=== PATIENT | female | born 1960 | race Caucasian/White ===

== ENCOUNTER 2017-06-17 20:38 | Emergency (ER) | payer OTHER ==
[2017-06-17 20:47] VITALS: BP 151/91; PULSE 76; RESP 16; TEMP 98.4; O2SAT 100
[2017-06-17] MEDS ORDERED: Iohexol 240 (50 ml) PO ONE (21:18)
--- NOTE | 2017-06-17 21:25 | ED PDOC ---
HPI: Abdomen Time Seen by Provider: 06/17/17 20:49 Chief Complaint (Nursing): Chest Pain Chief Complaint (Provider): Abdominal Pain History Per: Patient History/Exam Limitations: no limitations Onset/Duration Of Symptoms: Intermittent Episodes (2 months ) Current Symptoms Are (Timing): Still Present Location Of Pain/Discomfort: RUQ, Epigastric Additional Complaint(s): Caitlyn Todd is a 56 y/o female, with a past medical history of Borderline Hypertension, presenting to the ER on 06/17/2017 with intermittent episodes of epigastric and RUQ pain that has been ongoing for two months. Patient reports for the last week, her pain has been constant. She was evaluated at an Urgent Care center that prescribed her Sucralfate for her pain, which has not resolved. Upon arrival, the patient notes she was seen by her PMD in the past and had CT imaging performed on her abdomen. However, patient is unsure if the results said she had her gallbladder removed when she had a gastric bypass performed in the past. Patient further reports her pain worsened specifically today, prompting her to seek medical evaluation. She states she has been experiencing associated constipation, nausea, chest tightness, and shortness of breath, but denies any vomiting, diarrhea, or fever. Patient is also taking Metformin at home for her Hypertension. PMD- Dr. Snyder Past Medical History Reviewed: Historical Data, Nursing Documentation, Vital Signs Vital Signs: Last Vital Signs Temp 98.4 F 06/17/17 20:46 Pulse 76 06/17/17 20:46 Resp 16 06/17/17 20:46 BP 151/91 H 06/17/17 20:46 Pulse Ox 100 06/18/17 00:57 - Medical History PMH: Asthma, Diabetes (pre-diabetes), HTN - Surgical History Surgical History: Other surgeries: gastric bypass - Family History Family History: States: Unknown Family Hx - Social History Current smoker - smoking cessation education provided: No Alcohol: None Drugs: Denies - Home Medications Home Medications: Ambulatory Orders Medication Instructions Recorded Cyclobenzaprine [Cyclobenzaprine 10 mg PO Q8 PRN #9 tab 08/05/16 HCl] oxyCODONE/Acetaminophen [Percocet 1 tab PO Q4 PRN #14 tab 08/05/16 5/325 mg Tab] Famotidine [Pepcid] 20 mg PO DAILY #14 tab 06/18/17 Omeprazole 20 mg PO DAILY #30 capsule. 06/18/17 - Allergies Allergies/Adverse Reactions: Allergies Allergy/AdvReac Type Severity Reaction Status Date / Time aspirin Allergy ANAPHYLAXIS Verified 06/17/17 20:46 Penicillins Allergy RASH Verified 06/17/17 20:46 Review of Systems ROS Statement: Except As Marked, All Systems Reviewed And Found Negative Constitutional: Negative for: Fever Cardiovascular: Positive for: Chest Pain Gastrointestinal: Positive for: Nausea, Abdominal Pain, Constipation. Negative for: Vomiting, Diarrhea Physical Exam - Reviewed Nursing Documentation Reviewed: Yes Vital Signs Reviewed: Yes - Physical Exam Appears: Positive for: Non-toxic, No Acute Distress. Negative for: Uncomfortable Head Exam: Positive for: ATRAUMATIC, NORMOCEPHALIC Skin: Positive for: Normal Color. Negative for: Rash Eye Exam: Positive for: Normal appearance ENT: Positive for: Normal ENT Inspection. Negative for: Pharyngeal Erythema, Tonsillar Exudate, Tonsillar Swelling Neck: Positive for: Normal, Painless ROM, Supple Cardiovascular/Chest: Positive for: Regular Rate, Rhythm. Negative for: Murmur Respiratory: Positive for: Normal Breath Sounds. Negative for: Respiratory Distress Gastrointestinal/Abdominal: Positive for: Normal Exam, Tenderness ((+) epigastric and Right upper quadrant ) Extremity: Positive for: Normal ROM. Negative for: Tenderness, Deformity, Swelling Neurologic/Psych: Positive for: Alert, Oriented. Negative for: Motor/Sensory Deficits - Laboratory Results Result Diagrams: 06/17/17 21:40 06/17/17 21:40 - ECG ECG Rhythm: Positive for: Normal QRS, Normal ST Segment, Sinus Rhythm (@ 78 bpm) . Negative for: ST/T Changes O2 Sat by Pulse Oximetry: 100 - Progress Re-evaluation Time: 00:40 Condition: Re-examined, Improved Medical Decision Making Medical Decision Makin:30 Initial Impression- Abdominal pain ; differential diagnosis includes but is not limited to- gastritis, PUD, pancreatitis, Gallbladder disease (also considered since patient most likely had cholecystecomty), CBD stones , SBO Initial Plan- * CT Abd Pelvis PO & IV Contrast * EKG * CMP * Lipase * Urine Dip * CBC w/ differential * Reevaluation 12:33 CT Abdomen and Pelvis With Intravenous Contrast CONTRAST: 95 mL of [id number] administered intravenously. EXAM DATE/TIME: 06/17/2017 9:19 PM COMPARISON: No relevant prior studies available. FINDINGS: Lower thorax: Calcified granuloma in the right lung base. ABDOMEN: Liver: The liver is unremarkable. Gallbladder and bile ducts: There has been a cholecystectomy. There is a mild, expected degree of intrahepatic and common bile duct dilation. Pancreas: The pancreas is unremarkable. Spleen: The spleen is unremarkable. Adrenals: The adrenal glands are unremarkable. Kidneys and ureters: Symmetric renal enhancement without hydronephrosis. Stomach and bowel: Post gastric bypass with wall thickening of the proximal efferent loop and adjacent stranding likely infectious or inflammatory. No evidence of bowel obstruction. Appendix: A normal appendix is identified. PELVIS: Bladder: No focal wall thickening of the urinary bladder. Reproductive: Uterus is unremarkable. No suspicious adnexal lesion seen. ABDOMEN and PELVIS: Intraperitoneal space: No significant peritoneal free fluid. No free peritoneal air. Bones/joints: No acute osseous abnormality. Soft tissues: No soft tissue swelling. Vasculature: Unremarkable. No abdominal aortic aneurysm. Lymph nodes: No enlarged lymph nodes. IMPRESSION: Post gastric bypass with wall thickening of the proximal efferent loop and adjacent stranding likely infectious or inflammatory. No evidence of bowel obstruction. -- Documented by Armaan Macdonald, acting as a scribe for Sis Vazquez MD. All medical record entries made by the Scribe were at my direction and personally dictated by me. I have reviewed the chart and agree that the record accurately reflects my personal performance of the history, physical exam, medical decision making, and the department course for this patient. I have also personally directed, reviewed, and agree with the discharge instructions and disposition. Disposition - Clinical Impression Clinical Impression: Abdominal pain, Gastritis - Patient ED Disposition Is Patient to be Admitted: No Doctor Will See Patient In The: Office Counseled Patient/Family Regarding: Studies Performed, Diagnosis, Need For Followup - Disposition Referrals: Ronnie Jay MD, PhD [Staff Provider] - Disposition: Routine/Home Disposition Time: 00:57 Condition: GOOD Additional Instructions: Take your medications as instructed. Follow up with your PCP in 2-3 days. Prescriptions: Famotidine [Pepcid] 20 mg PO DAILY #14 tab Omeprazole 20 mg PO DAILY #30 capsule. Instructions: Gastritis (ED) Forms: LISNR ([place]occan)
[2017-06-17 21:48] LABS: BASO # 0.1 K/uL (0.0-0.2); BASO % 0.6 % (0.0-2.0); EOS # 0.7 K/uL (0.0-0.7); EOS % 5.5 % (0.0-4.0); HEMOGLOBIN 10.8 g/dL (12.0-16.0); LYMPH # 2.7 K/uL (1.0-4.3); LYMPH % 21.4 % (20.0-40.0); MEAN CELL VOLUME 69.3 fl (81.0-99.0); MEAN CORPUSCULAR HEMOGLOBIN 20.9 pg (27.0-31.0); MEAN CORPUSCULAR HGB CONC 30.1 g/dL (33.0-37.0); MEAN PLATELET VOLUME 9.3 fl (7.2-11.7); MONO # 0.9 K/uL (0.0-0.8); MONO % 6.9 % (0.0-10.0); NEUT # 8.3 K/uL (1.8-7.0); NEUT % 65.6 % (50.0-75.0); RBC 5.18 Mil/uL (3.80-5.20); RED CELL DISTRIBUTION WIDTH 18.1 % (11.5-14.5); WHITE BLOOD COUNT 12.7 K/uL (4.8-10.8)
[2017-06-17 22:13] LABS: ALB/GLOB RATIO 1.2 (1.0-2.1); ALBUMIN 4.1 g/dL (3.5-5.0); ALT/SGPT 34 U/L (9-52); AST/SGOT 25 U/L (14-36); BLOOD UREA NITROGEN 11 mg/dl (7-17); CALCIUM 9.6 mg/dL (8.4-10.2); GFR AFRICAN-AMERICAN > 60; GFR NON-AFRICAN AMERICAN > 60; LIPASE 84 U/L (23-300)
[2017-06-17] MEDS ORDERED: Iohexol 300 100 ML IJ ONE (23:10)
[2017-06-17] MEDS ORDERED: Sodium Chloride 0.9% 50 ML IV ONE (23:10)
--- NOTE | 2017-06-18 08:51 | CT ---
PROCEDURE: CT Abdomen and Pelvis with contrast HISTORY: abdominal pain epigastric hx of armando? COMPARISON: None. TECHNIQUE: Contrast dose: 95 mL Omnipaque 300 Radiation dose: Total exam DLP = 982.57 mGy-cm. This CT exam was performed using one or more of the following dose reduction techniques: Automated exposure control, adjustment of the mA and/or kV according to patient size, and/or use of iterative reconstruction technique. FINDINGS: LOWER THORAX: No infiltrate/effusion. Calcified granuloma noted in right lower lobe. LIVER: Unremarkable. No gross lesion or ductal dilatation. GALLBLADDER AND BILE DUCTS: Status post cholecystectomy. Dilatation of common bile duct up to 13 mm diameter distally, consistent with prior cholecystectomy. This is not accompanied by intrahepatic biliary dilatation is unlikely indicative of obstruction. PANCREAS: Unremarkable. No gross lesion or ductal dilatation. SPLEEN: Unremarkable. ADRENALS: Unremarkable. No mass. KIDNEYS AND URETERS: Unremarkable. No hydronephrosis. No solid mass. VASCULATURE: Unremarkable. No aortic aneurysm. BOWEL: Patient is status post gastric bypass surgery. There is oral contrast seen within the excluded stomach the indicating possible partial dehiscence of the sutures forming the gastric pouch. Likely communication through a dehiscence is best demonstrated on coronal series 601, image 70. There is mural thickening of the gastric pouch. There is circumferential mural thickening of the most proximal jejunum of the efferent limb. This is nonspecific. There is mild streaky increased attenuation of surrounding. These findings are nonspecific. There are no other abnormal bowel loops identified. There is no bowel obstruction. APPENDIX: Normal appendix. PERITONEUM: Unremarkable. No free fluid. No free air. LYMPH NODES: There is no retroperitoneal or pelvic lymphadenopathy. There are numerous shotty subcentimeter lymph nodes within the small bowel mesenteric, consistent with nonspecific mesenteric adenitis. BLADDER: Poorly distended. Grossly normal. REPRODUCTIVE: Normal uterus BONES: No acute fracture. OTHER FINDINGS: None. IMPRESSION: Possible partial dehiscence of suture line gastric pouch from excluded stomach with oral contrast seen in the excluded portion of the stomach. Mural thickening of gastric pouch. Mural thickening of a roughly 7 cm segment of the proximal efferent limb of jejunum, nonspecific. Shotty small bowel mesenteric lymph nodes consistent with nonspecific mesenteric adenitis. Preliminary interpretation of this examination was reported by [facility] at 12:33 a.m. on 06/18/2017. There is discordance of this report with the preliminary interpretation. Possible dehiscence was not discussed in the preliminary report of this examination. This discrepancy was discussed by telephone with Dr. Wagner at 8:48 a.m. on 06/18/2017.
--- NOTE | 2017-06-18 10:13 | CARD ---
APPROVED REPORT EKG Measurement Heart [id number] <Conclusion> Normal sinus rhythm Normal ECG
== END 2017-06-18 01:48 | disposition home or self-care (01) ==
LOC: H.ER 20:38
DX: K29.70 Gastritis, unspecified, without bleeding (principal); R10.13 Epigastric pain; K59.00 Constipation, unspecified; E11.9 Type 2 diabetes mellitus without complications; I10 Essential (primary) hypertension; Z88.0 Allergy status to penicillin; Z98.84 Bariatric surgery status

== ENCOUNTER 2017-06-18 11:44 | Observation (INO) | payer OTHER ==
[2017-06-18 11:50] VITALS: BMI 32.8
[2017-06-18 11:51] VITALS: RESP 18; O2SAT 100
[2017-06-18 13:09] LABS: BASO # 0.1 K/uL (0.0-0.2); BASO % 0.6 % (0.0-2.0); EOS # 0.7 K/uL (0.0-0.7); EOS % 7.8 % (0.0-4.0); HEMOGLOBIN 10.6 g/dL (12.0-16.0); LYMPH # 2.1 K/uL (1.0-4.3); LYMPH % 23.5 % (20.0-40.0); MEAN CORPUSCULAR HEMOGLOBIN 21.2 pg (27.0-31.0); MEAN CORPUSCULAR HGB CONC 30.7 g/dL (33.0-37.0); MEAN PLATELET VOLUME 9.7 fl (7.2-11.7); MONO # 0.7 K/uL (0.0-0.8); MONO % 8.1 % (0.0-10.0); NEUT # 5.3 K/uL (1.8-7.0); RBC 5.01 Mil/uL (3.80-5.20); RED CELL DISTRIBUTION WIDTH 18.3 % (11.5-14.5); WHITE BLOOD COUNT 8.8 K/uL (4.8-10.8)
--- NOTE | 2017-06-18 13:29 | ED PDOC ---
HPI: Abdomen Time Seen by Provider: 06/18/17 12:17 Chief Complaint (Nursing): Abdominal Pain Chief Complaint (Provider): abdominal pain History Per: Patient History/Exam Limitations: no limitations Additional Complaint(s): 56yo F in ED for call back for abnormal CT findings. Pt c/o of 2-3 months of progressive abdominal pain with some nausea and worsening constipation. denies vomiting fever chills body aches. states she tried to contact her surgeon that did the gastric bybass 13years ago but he moved to [place]. "IMPRESSION: Possible partial dehiscence of suture line gastric pouch from excluded stomach with oral contrast seen in the excluded portion of the stomach. Mural thickening of gastric pouch. Mural thickening of a roughly 7 cm segment of the proximal efferent limb of jejunum, nonspecific. Shotty small bowel mesenteric lymph nodes consistent with nonspecific mesenteric adenitis. Preliminary interpretation of this examination was reported by [facility] at 12:33 a.m. on 06/18/2017. There is discordance of this report with the preliminary interpretation. Possible dehiscence was not discussed in the preliminary report of this examination. This discrepancy was discussed by telephone with Dr. Wagner at 8:48 a.m. on 2016." labs: 12.7 WBC. currently in ED without pain no fever no chills no vomiting no dizziness Past Medical History Reviewed: Historical Data, Nursing Documentation, Vital Signs Vital Signs: Last Vital Signs Temp 98 F 06/18/17 17:21 Pulse 70 06/18/17 17:21 Resp 18 06/18/17 17:21 BP 129/68 06/18/17 17:21 Pulse Ox 100 06/18/17 19:41 - Medical History PMH: Asthma, Diabetes (pre-diabetes), HTN - Surgical History Surgical History: - Family History Family History: States: Unknown Family Hx - Home Medications Home Medications: Ambulatory Orders Medication Instructions Recorded Alendronate [Fosamax] 70 mg PO QWK 06/18/17 Famotidine [Pepcid] 20 mg PO DAILY #14 tab 06/18/17 Montelukast [Singulair] 10 mg PO DAILY 06/18/17 Multivit-Min/Iron/Folic/Zcn220 1 tab PO DAILY 06/18/17 [Hair, Skin and Nails Caplet] Omeprazole 20 mg PO DAILY #30 capsule. 06/18/17 Phentermine HCl [Adipex-P] 37.5 mg PO DAILY 06/18/17 Sucralfate [Carafate Tab] 1 gm PO QID 06/18/17 metFORMIN [glucOPHAGE] 500 mg PO DAILY 06/18/17 - Allergies Allergies/Adverse Reactions: Allergies Allergy/AdvReac Type Severity Reaction Status Date / Time aspirin Allergy ANAPHYLAXIS Verified 06/17/17 20:46 Penicillins Allergy RASH Verified 06/17/17 20:46 Review of Systems ROS Statement: Except As Marked, All Systems Reviewed And Found Negative Constitutional: Negative for: Fever, Chills, Weakness Gastrointestinal: Positive for: Nausea, Abdominal Pain. Negative for: Vomiting Physical Exam - Reviewed Nursing Documentation Reviewed: Yes Vital Signs Reviewed: Yes - Physical Exam Appears: Positive for: Well, Non-toxic, No Acute Distress Skin: Positive for: Normal Color, Warm, DRY Eye Exam: Positive for: EOMI, Normal appearance, PERRL ENT: Positive for: Normal ENT Inspection Neck: Positive for: Normal, Painless ROM Cardiovascular/Chest: Positive for: Regular Rate, Rhythm Respiratory: Positive for: CNT, Normal Breath Sounds Gastrointestinal/Abdominal: Positive for: Bowel Sounds, Soft, Tenderness (mild epigastric abd pain). Negative for: Distended, Guarding Back: Positive for: Normal Inspection Extremity: Positive for: Normal ROM Neurologic/Psych: Positive for: Alert, Oriented - Laboratory Results Result Diagrams: 06/18/17 12:55 06/18/17 12:55 - ECG O2 Sat by Pulse Oximetry: 100 - Progress ED Course And Treament: pt to have repeat labs, and surgery consult. MD aditya made aware of case Medical Decision Making Medical Decision Makin :labs now back with dec WBC compared to CBC 06/17/17. PT stable at this time. onstaff surgery-MD Ciarra consulted. MD Fortino made aware. surgeon and residents currently in surgery 1431 PT given morphine /zofran 1454: MD Ciarra consulted MD Fortino-advised pt will need to be seen by a biariatric surgeon adn transfer would be appropriate at this time pt is stable at this time. no fever no abd swelling or distention 1500: [facility] consulted. 16:05 Call placed to [place] to to get update. pending states international affairs vice president in contact with surgeon will call with an update 16:30 Dextrose 1NS given pt stable with normal VS roughly close to 17:00 consulted with MD Kyleigh. Suggests pt should have issue addressed by surgery in [facility]. req. contact of [place] and residents to discuss case. MD Fortino made aware 17:10 MD Rebecca made aware. 17:38 MD Kyleigh states he spoke with surgical residents-Ashley who stated that they will see pt and contact him. 17:46 international affairs vice president contacted again-will come see pt. 18:20 international affairs vice president contacted again. has yet to see pt. 18:32 international affairs vice president contacted. has not seen pt 18:50 residential director notified -is en route to ED pt is still comfortable and with stable vS 19:21 international affairs vice president in ED evaluating pt. 19:41 [facility] is aware of pending disposition of pt. ED OBSERVATION Date of observation admission: 06/18/17 Time of observation admission: 14:00 - Observation admission statement Patient is being placed in observation because:: pending surgical internvetion - Goals of Observation Goals of observation are:: surgical intervention Disposition - Clinical Impression Clinical Impression: Abdominal pain - Patient ED Disposition Is Patient to be Admitted: Transfer of Care - Disposition Disposition Time: 20:07 Condition: STABLE Patient Signed Over To: Chaz Mercado Handoff Comments: pending surgical dispo
[2017-06-18 13:30] LABS: ALB/GLOB RATIO 1.2 (1.0-2.1); ALBUMIN 3.9 g/dL (3.5-5.0); ALT/SGPT 35 U/L (9-52); AST/SGOT 26 U/L (14-36); BLOOD UREA NITROGEN 9 mg/dl (7-17); CALCIUM 9.1 mg/dL (8.4-10.2); GFR AFRICAN-AMERICAN > 60; GFR NON-AFRICAN AMERICAN > 60
[2017-06-18] MEDS ORDERED: Sodium Chloride 0.9% 1,000 ML IV STA (15:01)
[2017-06-18] MEDS ORDERED: Dextrose 5%/0.9% NS 1,000 ML IV SCH (16:15)
[2017-06-18] MEDS ORDERED: Dextrose 5%/0.45% NS 1,000 ML IV SCH (16:30)
[2017-06-18 17:00] LABS: SQUAMOUS EPITHIAL 1 /hpf (0-5); URINE BILIRUBIN NEGATIVE (NEGATIVE); URINE BLOOD NEGATIVE (NEGATIVE); URINE CLARITY SLIGHTY-CLOUDY (Clear); URINE COLOR YELLOW (YELLOW); URINE GLUCOSE (UA) NEG (Normal); URINE LEUKOCYTE ESTERASE NEG Leu/uL (Negative); URINE NITRATE NEGATIVE (NEGATIVE); URINE PROTEIN NEGATIVE (NEGATIVE); URINE UROBILINOGEN 0.2-1.0 mg/dL (0.2-1.0)
[2017-06-18 17:21] VITALS: BP 129/68; PULSE 70; TEMP 98
--- NOTE | 2017-06-18 20:25 | ED PDOC ---
- Laboratory Results Result Diagrams: 06/18/17 12:55 06/18/17 12:55 - ECG O2 Sat by Pulse Oximetry: 100 Pulse Ox Interpretation: Normal Medical Decision Making Medical Decision MakinPM: Pt. signed out to me by both Dr. Freitas and ALVARO Bell. residential installer Dr. Cook already in ED upon my arrival to ER, spoke with Dr. Warren and sent him all imaging/reports, relates that Dr. 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 Dr. Solorio called ED and states that he will not consult on this patient because he believes it is a bariatric case. Patient seen and examined in room, states she has no abdominal pain, is sitting in chair awaiting dispositoin, states she is hungry and thirsty and is getting a "Tension headache" bC she has not eaten all day. Will continue to await for proper disposition. 9PM: Pt. tolerating PO, feeling much better (headache resolving). Continues without abdominal pain. WDr. Warren's consultation appreciated and recommendations are being followed: 1 L banana bag now, PPI and carafate to go home with, patient understands to f/u w/ him in office and will call in the AM and patient is already trying to arrange f/u w/ GI, had referral given yesterday. Pt. to be discharged home. Disposition - Clinical Impression Clinical Impression: Abdominal pain - POA Present On Arrival: None - Disposition Disposition: Routine/Home Disposition Time: 21:30 Condition: STABLE
[2017-06-18] MEDS ORDERED: Multivitamin (MVI) 10 ML, Folic Acid 1 MG, Thiamine 100 MG in Dextrose 5%/0.45% NS 1,00... IV ONE (20:58)
== END 2017-06-18 21:43 | disposition home or self-care (01) ==
LOC: H.ER 11:44 → H.EROBSV 17:47
PROVIDERS: ADMIT Emergency Medicine; ATTEND Emergency Medicine
DX: R10.9 Unspecified abdominal pain (principal); I88.0 Nonspecific mesenteric lymphadenitis; I10 Essential (primary) hypertension; J45.909 Unspecified asthma, uncomplicated; R73.03 Prediabetes; Z79.83 Long term (current) use of bisphosphonates; Z79.899 Other long term (current) drug therapy; K59.00 Constipation, unspecified; R11.0 Nausea; Z79.84 Long term (current) use of oral hypoglycemic drugs; R51 Headache; Z98.84 Bariatric surgery status; Z88.6 Allergy status to analgesic agent; Z88.0 Allergy status to penicillin